=== PATIENT | female | born 1990 | race Hispanic/Latino ===

== ENCOUNTER 2017-12-21 22:49 | Emergency (ER) | payer OTHER, SELFPAY ==
[2017-12-21 22:51] VITALS: BP 157/98; PULSE 88; RESP 16; TEMP 37; O2SAT 97; BMI 41.5
[2017-12-21 23:26] LABS: Bacteria Urine Few (2-10); Culture Indicated Urine Cult Not Indicated; Mucus Urine 1+ (Negative); RBC Urine 30-100/HPF (0-5/HPF); Squamous Epithelial Cell Urine 10-30 /HPF; WBC Urine 1-5/HPF (0-5/HPF)
--- NOTE | 2017-12-22 00:19 | ED_ITS ---
HPI - Female Genitourinary General Chief complaint: Urogenital-Female Stated complaint: PAIN IN BACK AREA NAUSEA Time Seen by Provider: 12/22/17 00:00 Source: patient Mode of arrival: ambulatory Limitations: no limitations History of Present Illness HPI Narrative: The patient is a 27-year-old female who presents with right flank pain. It has been ongoing throughout the day per bili getting worse. She does have a history of kidney stones this feels similar to her prior kidney stones however the pain is much more intensified. It comes and goes she occasionally gets nauseated. She typically takes Motrin for her pain however it is not helping. She has no fever Related Data Home Medications Medication Instructions Recorded Confirmed omega 7-ljb-bsw-fish oil [Fish Oil] 1,000 mg PO QDAY #0 09/05/16 Previous Rx's Medication Instructions Recorded fluticasone 0 INTRANASAL QDAY #16 gm 08/07/16 naproxen [Naprosyn] 500 mg PO BIDCC #30 tab 09/28/16 prednisone 50 mg PO AMCC 5 Days #0 tab 10/31/16 oxycodone-acetaminophen [Percocet] 1 tab PO Q4HP PRN #15 tab 11/06/16 tamsulosin [Flomax] 0.4 mg PO Q DAY #7 cap 11/06/16 etonogestrel-ethinyl estradiol 1 icr VAGINAL QMONTH #3 icr 11/07/16 [NuvaRing] meloxicam [Mobic] 7.5 mg PO DAILY PRN #20 tab 12/22/17 ondansetron HCl [Zofran] 4 mg PO Q6-8H PRN #10 tab 12/22/17 Allergies Allergy/AdvReac Type Severity Reaction Status Date / Time levocetirizine [From Xyzal] Allergy Anaphylaxis Verified 12/21/17 22:54 Review of Systems Review of Systems GENERAL: Denies chills, fatigue, malaise, fever, sweats, travel HEENT: Denies sinus pain, ear pain, sore throat, difficulty swallowing, neck pain RESPIRATORY: Denies dyspnea, cough, wheezing, hemoptysis, sputum. CARDIOVASCULAR: Denies chest pain, palpitations, orthopnea, edema GASTROINTESTINAL: Denies nausea, vomiting, abdominal pain, diarrhea, constipation, melena. : See HPI MUSCULOSKELETAL: Denies weakness, joint pain, or bony pain SKIN: No rash, no erythema, no pruritus NEUROLOGIC: Denies weakness, dizziness, headache, numbness, change in speech, confusion PSYCHIATRIC: No concerning psychosocial issues. 12 point review of systems is negative except for those stated above and HPI [facility] Medical History Acne (Chronic 2014) Anxiety (Chronic 2012) Asthma (Chronic 1998) Chronic headaches (Chronic 2003) Hayfever (Chronic 1989) Irregular periods/menstrual cycles (Chronic 2003) Kidney stones (Chronic 2013) Migraines (Chronic 2003) Chicken pox (Resolved 1990) Surgical History Anesthesia complication (Resolved 2014) History of orthopedic surgery (Resolved 1991) Status post appendectomy (Resolved 2014) Status post tonsillectomy and adenoidectomy (Resolved 1999) Family History Brother Age: 35 Bipolar 1 disorder Schizophrenia Benign neoplasm of pancreas Grandfather Age: 79 Dementia Grandmother Cirrhosis Liver failure Alcoholism Mother Diabetes mellitus Alcoholism Liver failure Kidney failure Sepsis Pneumonia Brother No problems noted. Father No problems noted. Grandfather Kidney disease Grandmother No problems noted. Sister No problems noted. Social History Smoking Status: Never smoker Exam Initial Vital Signs Initial Vital Signs: Vital Signs Temperature 98.6 F 12/21/17 22:51 Pulse Rate 88 12/21/17 22:51 Respiratory Rate 16 12/21/17 22:51 Blood Pressure 157/98 H 12/21/17 22:51 Pulse Oximetry 97 12/21/17 22:51 GENERAL: Well-appearing, well-nourished and in no acute distress. HEENT: Head atraumatic,EOMI, pupils reactive, face symmetric CARDIOVASCULAR: Regular rate and rhythm without murmurs, rubs or gallops. RESPIRATORY: Breath sounds equal bilaterally, no wheezes rales or rhonchi. ABDOMEN: Soft, nontender. Normoactive bowel sounds all 4 quadrants. No guarding or rebound. No right upper quadrant pain : mild right CVA tenderness EXTREMITIES: Normal range of motion, no clubbing or edema. Neurovascularly intact NEUROLOGICAL: Alert and oriented x4.Normal gait and speech. SKIN: Warm, dry, no laceration, no petechiae, no rashes or lesions. Course Orders Ordered: ED Orders 12/21/17 23:10 Urine Microscopic Stat 12/22/17 00:19 Basic Metabolic Panel Stat Complete Blood Count AUTO DIFF Stat Discontinued Medications Ketorolac Tromethamine (Toradol) 30 mg IV NOW ONE Stop: 12/22/17 00:20 Last Admin: 12/22/17 00:23 Dose: 30 mg Ondansetron HCl (Zofran) 4 mg IV NOW ONE Stop: 12/22/17 00:20 Last Admin: 12/22/17 00:23 Dose: 4 mg Ondansetron HCl (Zofran Odt Prepack) 1 bottle MISC SEEINSTR ONE Stop: 12/22/17 00:51 Last Admin: 12/22/17 00:53 Dose: 1 bottle Vital Signs - 8 hr 12/21/17 22:51 12/22/17 00:56 Temperature 98.6 F 97.6 F Pulse Rate 88 73 Respiratory Rate 16 16 Blood Pressure 157/98 H 133/83 Pulse Oximetry 97 97 MDM - Female Genitourinary Lab Data Attestation: I reviewed the patient's lab results. Result diagrams: 12/21/17 23:40 12/21/17 23:40 Lab Results 12/21/17 12/21/17 12/21/17 Range/Units 23:10 23:40 23:40 WBC 10.3 (4.5-11.0) X10^3/uL RBC 4.72 (4.0-5.2) X10^6/uL Hgb 14.6 (12.0-16.0) g/dL Hct 42.5 (36-46) % MCV 89.9 (80-100) fL MCH 30.9 (26-34) PG MCHC 34.4 (30-36) % RDW 12.8 (11.6-14.8) % Plt Count 334 (150-400) X10^3/uL Neut % (Auto) 50.2 (50-75) % Lymph % (Auto) 41.4 H (25-40) % [place] % (Auto) 6.1 (3-14) % Eos % (Auto) 1.7 L (2-4) % Baso % (Auto) 0.6 (0-2) % Neut # (Auto) 5100 (2607-1774) /uL Sodium 142 (137-145) mmol/L Potassium 3.8 (3.4-5.1) mmol/L Chloride 102 (98-107) mmol/L Carbon Dioxide 28 (22-32) mmol/L BUN 12 (7-17) mg/dL Creatinine 0.80 (0.52-1.04) mg/dL Estimated GFR > 60.0 (>60) mL/min BUN/Creatinine Ratio 15.0 (6-22) Glucose 114 H (70-100) mg/dL Calcium 10.2 (8.4-10.2) mg/dL Urine RBC 30-100/hpf H (0-5/HPF) Urine WBC 1-5/hpf (0-5/HPF) Ur Squamous Epith Cells 10-30 /hpf H Urine Bacteria Few (2-10) H (None) Urine Mucus 1+ H (Negative) Ur Culture Indicated? Cult not indicated Micro UA Comment Not Reportable Point of Care Testing Test Results Negative Urine Dip Bedside Urine Glucose Negative Bedside Urine Bilirubin - Negative Bedside Urine Ketone - Negative Urine Specific [place] 1.030 Bedside Urine Occult Blood +++ Bedside Urine pH 6.0 Bedside Urine Protein +/- 15 Bedside Urine Urobilinogen - Negative Bedside Urine Nitrite - Negative Bedside Urine Leukocytes - Negative Esterase MDM Narrative Medical decision making narrative: At this time patient appears comfortable she has had multiple stones in the past. We discussed imaging however at this time recommended pain control. If she does not pass the stone then she may require imaging at that time. No renal failure noted at this time other blood work is reassuring. I discussed all findings with the patient and spouse, Education has been performed regarding treatment plan, diagnosis, warning signs and symptoms and all concerns have been addressed. Verbally agree with and understood all of the above. Discharge Plan Departure Patient Disposition: Home Clinical Impression: Kidney stones Discharge Date/Time: 12/22/17 00:57 Interventions: ED Discharge Assessment Last Done: 12/22/17 00:56 Instructions: DI for Kidney Stones Activity Restrictions/Additional Instructions: *You have been diagnosed with kidney stone *What to do: At this time blood work is reassuring no imaging needed. Hopefully passed stone in the next couple days. *Continue to take medications as directed Mobic once a day do not combine with naproxen, ibuprofen, Motrin, Aleve, Advil or other NSAIDs Zofran every 6-8 hours if needed for nausea or vomiting *Follow up with your primary care provider in 2-3 days *Return to ER if you should have fever, increasing pain, inability to tolerate fluids or any new, worsening or concerning symptoms Prescriptions: New meloxicam [Mobic] 7.5 mg tablet 7.5 mg PO DAILY PRN (Reason: pain) Qty: 20 RF: 0 ondansetron HCl [Zofran] 4 mg tablet 4 mg PO Q6-8H PRN (Reason: nausea and vomiting) Qty: 10 RF: 0 No Action fluticasone 16 GM spray,suspension Intranasal QDAY Qty: 16 RF: 0 omega 8-tvy-gxw-fish oil [Fish Oil] 1,000 MG capsule 1,000 mg PO QDAY Qty: 0 RF: 0 naproxen [Naprosyn] 500 MG tablet 500 mg PO BIDCC Qty: 30 RF: 0 prednisone 50 MG tablet 50 mg PO AMCC 5 Days Qty: 0 RF: 0 oxycodone-acetaminophen [Percocet] 5 MG/325 MG tablet 1 tab PO Q4HP PRNQty: 15 RF: 0 tamsulosin [Flomax] 0.4 MG capsule,extended release 24hr 0.4 mg PO Q DAY Qty: 7 RF: 0 etonogestrel-ethinyl estradiol [NuvaRing] 1 EACH ring 1 icr Vaginal QMONTH Qty: 3 RF: 3 Referrals: Carrie Phipps ARNP [Primary Care Provider] -
[2017-12-22] MEDS: ONDANSETRON 4 MG/2 ML INJ IV (00:23)
[2017-12-22] MEDS: KETOROLAC 60 MG/2 ML VIAL 30 MG IV (00:23)
[2017-12-22 00:25] LABS: Add Manual Diff / Slide Review NO; Basophils Percent Auto 0.6 % (0-2); Eosinophils Percent Auto 1.7 % (2-4); Hematocrit 42.5 % (36-46); Hemoglobin 14.6 g/dL (12.0-16.0); Lymphocytes Percent Auto 41.4 % (25-40); Mean Corpuscular HGB Conc 34.4 % (30-36); Mean Corpuscular Hemoglobin 30.9 PG (26-34); Mean Corpuscular Volume 89.9 fL (80-100); Monocytes Percent Auto 6.1 % (3-14); Neutrophils Absolute Auto 5100 /uL (3000-5900); Neutrophils Percent Auto 50.2 % (50-75); Platelet Count 334 X10^3/uL (150-400); Red Blood Cell Count 4.72 X10^6/uL (4.0-5.2); Red Cell Distribution Width 12.8 % (11.6-14.8); White Blood Cell Count 10.3 X10^3/uL (4.5-11.0)
[2017-12-22 00:31] LABS: Blood Urea Nitrogen 12 mg/dL (7-17); Calcium 10.2 mg/dL (8.4-10.2); Carbon Dioxide 28 mmol/L (22-32); Chloride 102 mmol/L (98-107); Estimated Glomerular Filt Rate > 60.0 mL/min (>60); Glucose 114 mg/dL (70-100); HEMOLYSIS < 15 (0-50); Potassium 3.8 mmol/L (3.4-5.1); Sodium 142 mmol/L (137-145)
[2017-12-22] MEDS: ONDANSETRON 4 MG ODT PREPACK 1 BOTTLE MISC (00:53)
[2017-12-22 00:56] VITALS: BP 133/83; PULSE 73; RESP 16; TEMP 36.4; O2SAT 97
== END 2017-12-22 00:57 | disposition home or self-care (01) ==
PROVIDERS: Emergency Provider Emergency Medicine; Family Provider Internal Medicine; PCP Internal Medicine
DX: N20.0 Calculus of kidney (principal)
CPT/HCPCS: 36591; 80048; 81003; 81015; 81025; 85025; 96374; 96375; 99283; 99284; J1885; J2405

== ENCOUNTER 2019-02-16 16:17 | Emergency (ER) | payer OTHER, SELFPAY ==
[2019-02-16 16:20] VITALS: BP 151/100; PULSE 91; RESP 18; TEMP 36.7; O2SAT 99
--- NOTE | 2019-02-16 17:55 | PC.NURSE ---
patient reports some tingling in fingers right facial tingling and headache. Symptoms started at 1300ish. Patient has had similar symptoms in the past. Patient states most of the sensation is gone but temporal and occipital headache is still present. Patient negative FAST exam. Steady on her feet. Reports stress starting IVF process on saturday. Patient has long history of headaches, reports mild headaches daily. About once a month has to take something for a headache.
--- NOTE | 2019-02-16 17:56 | DI.CT.S_ITS ---
PROCEDURE: CT HEAD/BRAIN WO CON INDICATIONS: recurrent focal numbness and visual changes TECHNIQUE: Noncontrast 4.5 mm thick angled axial sections acquired from the foramen magnum to the vertex, with coronal and sagittal reformats. For radiation dose reduction, the following was used: automated exposure control, adjustment of mA and/or kV according to patient size. COMPARISON: None. FINDINGS: Image quality: Excellent. CSF spaces: Basal cisterns are patent. No extra-axial fluid collections. Ventricles are normal in size and shape. Brain: No midline shift. No intracranial masses or hemorrhage. Lipscomb-white matter interface is normal. Skull and face: Calvarium and visualized facial bones are intact, without suspicious lesions. Sinuses: Visualized sinuses and mastoids are clear. IMPRESSION: Unremarkable head CT. No evidence of gastric, hemorrhage, or mass. Normal brain parenchyma. Dictated by: Judd Hill M.D. on 02/16/2019 at 19:06 Approved by: Judd Hill M.D. on 02/16/2019 at 19:06
--- NOTE | 2019-02-16 17:56 | ED.NEUROSD ---
HPI - Neuro Symptoms/Deficit General Chief Complaint: Neuro Symptoms/Deficit Stated Complaint: EYES LOST FOCUS FINGERS WENT NUMB DIZZY Time Seen by Provider: 02/16/19 17:22 Source: patient Mode of arrival: Ambulatory Limitations: no limitations History of Present Illness HPI Narrative: Patient comes emergency department complaining of an episode today in which she felt dizzy and then her fingers went numb, prior to development of a migraine headache. Patient states she also seemed to be unable to focus her eyes very well, though her vision itself is not blurry. Patient states she has a history of migraines and she has had some neurologic symptoms prior to the migraines previously. However, she has been under lot of stress and is scheduled to undergo IVF tomorrow, and wants make sure that everything is okay before she does this. Patient denies any vomiting but she has been somewhat nauseated with her headache. She denies fevers or chills. She has not been ill with anything recently. She has not had any head injuries. No chest pain, shortness breath, abdominal pain, neck pain, or photophobia. No other complaints at this time. She states that her headache is located in her bilateral temples and behind her eyes. On Anticoagulants: No Related Data Home Medications Medication Instructions Recorded Confirmed PNV cmb#95-ferrous fumarate-FA 1 tab PO DAILY 02/16/19 02/16/19 [] desogestrel-ethinyl estradiol 1 tab PO DAILY 02/16/19 02/16/19 [Isibloom] melatonin 3 mg PO BEDTIME PRN 02/16/19 02/16/19 Allergies Allergy/AdvReac Type Severity Reaction Status Date / Time levocetirizine [From Xyzal] Allergy Anaphylaxis Verified 08/17/18 14:56 Review of Systems Constitutional Constitutional: Denies chills, Denies fatigue, Denies fever(s), Denies frequent falls, Reports headache(s), Denies lethargy and Denies weakness Eyes Eyes: Denies change in vision, Denies eye discharge, Denies irritation and Denies loss of vision ENT Ears, Nose, Mouth, and Throat: Denies change in voice, Reports dizziness, Reports headache(s), Denies neck pain, Denies sore throat and Denies throat swelling Cardiovascular Cardiovascular: Denies chest pain, Denies irregular heart rhythm, Denies lightheadedness, Denies palpitations, Denies dyspnea, Denies dyspnea on exertion and Denies orthopnea Respiratory Respiratory: Denies cough, Denies dyspnea, Denies dyspnea on exertion and Denies wheezing Gastrointestinal Gastrointestinal: Denies abdominal pain, Denies change in bowel habits, Denies diarrhea, Reports nausea and Denies vomiting Genitourinary Genitourinary: Denies hematuria, Denies flank pain, Denies urinary incontinence and Denies urinary urgency Musculoskeletal Musculoskeletal: Denies back pain, Denies muscle weakness, Denies neck pain, Denies numbness and Denies tingling Integumentary/Breasts Skin/Breast: Denies pruritus, Denies erythema, Denies rash and Denies wounds Neurologic Neurologic: Denies behavioral changes, Denies confusion, Reports dizziness, Denies frequent falls, Reports headache(s), Denies loss of vision, Denies numbness, Reports other visual disturbances, Reports sensory deficit (Numbness fingers), Denies tingling and Denies weakness Psychiatric Psychiatric: Denies anxiety, Denies behavioral changes, Denies confusion, Denies depression, Denies homicidal ideation and Denies suicidal ideation Endocrine Endocrine: Denies fatigue, Denies flushing and Denies palpitations Hematologic/Lymphatic Hematologic/Lymphatic: Denies easy bruising Allergic/Immunologic Allergic/Immunologic: Denies urticaria, Denies throat swelling and Denies wheezing Patient History Medical History Acne (Chronic 2014) Anxiety (Chronic 2012) Asthma (Chronic 1998) Chicken pox (Resolved 1990) Chronic headaches (Chronic 2003) Hayfever (Chronic 1989) Irregular periods/menstrual cycles (Chronic 2003) Kidney stones (Chronic 2013) Migraines (Chronic 2003) Surgical History Anesthesia complication (Resolved 2014) History of orthopedic surgery (Resolved 1991) Status post appendectomy (Resolved 2014) Status post tonsillectomy and adenoidectomy (Resolved 1999) Family History Brother Age: 36 Bipolar 1 disorder Schizophrenia Benign neoplasm of pancreas Grandfather Age: 80 Dementia Grandmother Cirrhosis Liver failure Alcoholism Mother Diabetes mellitus Alcoholism Liver failure Kidney failure Sepsis Pneumonia Brother No problems noted. Father No problems noted. Grandfather Kidney disease Grandmother No problems noted. Sister No problems noted. Social History Smoking Status: Never smoker Smoking Status: Never smoker alcohol intake frequency: 0-2 drinks per day Substance Use Type: does not use Exam Initial Vital Signs Initial Vital Signs: Vital Signs Temperature 98.0 F 02/16/19 16:20 Pulse Rate 91 H 02/16/19 16:20 Respiratory Rate 18 02/16/19 16:20 Blood Pressure 151/100 H 02/16/19 16:20 Pulse Oximetry 99 02/16/19 16:20 Const General: cooperative and well developed Nutritional Appearance: well nourished Orientation: alert, awake, oriented x3 and not confused HENMT Head: normocephalic, atraumatic and other (Tender bilateral temples; no arterial prominence) Ears: external ears normal Nose: external nose normal and No nasal discharge Face and sinus: face symmetric and No dry mucous membranes Mouth: oral mucosae normal and moist mucous membranes Teeth and gingiva: dentition normal Throat: tonsils normal and uvula midline Eyes General: appearance normal, both eyes and all related structures Eyelids: eyelids normal Conjunctivae: conjunctivae normal Sclera: sclerae normal Pupils: PERRL EOM: EOM intact bilaterally Neck Neck: normal visual inspection, trachea midline, No lymphadenopathy, No midline deformity and No JVD Lymphatic: No lymphedema Chest Chest: normal inspection of the chest Resp Effort & Inspection: normal respiratory effort, able to speak in complete sentences, no respiratory distress and no use of accessory muscles Auscultation: clear to auscultation bilaterally, no rales, no rhonchi and no wheezes Cardio Rate: regular rate Rhythm: regular rhythm Heart Sounds: no click, no gallops, no murmurs and no rubs Pulses: normal peripheral pulses GI Inspection: non-distended Palpation: soft, no hepatosplenomegaly, No guarding, No pulsatile mass and No tender Auscultation: normal bowel sounds Back/Spine/Pelvis Back: No CVA tenderness Cervical Spine: cervical ROM normal and No pain with cervical ROM Thoracic/Lumbar Spine: thoracic and lumbar spine normal to inspection Skin General: no rashes or lesions noted, No jaundice and No petechiae Neuro General: alert, oriented x3, gait normal and no focal motor deficits Speech: speech normal Extrem General: full ROM, no clubbing, cyanosis or edema, no pedal edema and no calf tenderness Psych Appearance: well kempt Mental Status: mental status grossly normal Attitude: cooperative Thought Content: normal and suicidality Judgment: judgment good Course Course Course Narrative: Patient was treated symptomatically with IV fluids, Benadryl, and Compazine, after which she was found to be feeling better. Find any evidence of an emergent condition causing the patient's symptoms. Patient's neurologic symptoms had resolved by the time of presentation to the emergency department and her exam was benign. She had history of migraines, and the neurologic phenomena were consistent with an aura. We've discussed home management of symptoms, as well as the usual indications for return. I do not find any evidence of a CVA. Orders Ordered: Discontinued Medications Diphenhydramine HCl (Benadryl) 12.5 mg IV NOW ONE Stop: 02/16/19 17:46 Last Admin: 02/16/19 18:04 Dose: 12.5 mg Documented by: NATALIE Sodium Chloride (Normal Saline 0.9%) 1,000 mls @ 1,000 mls/hr IV BOLUS ONE Stop: 02/16/19 18:44 Last Infusion: 02/16/19 19:30 Dose: 0 mls/hr Documented by: Admin: 02/16/19 18:09 Dose: 1,000 mls/hr Documented by: NATALIE Prochlorperazine (Compazine) 10 mg IV NOW ONE Stop: 02/16/19 17:46 Last Admin: 02/16/19 18:04 Dose: 10 mg Documented by: NATALIE Vital Signs Vital signs: Vital Signs - 8 hr 02/16/19 16:20 Temperature 98.0 F Pulse Rate 91 H Respiratory Rate 18 Blood Pressure 151/100 H Pulse Oximetry 99 MDM - Neuro Symptoms/Deficit Medical Records Attestation: I reviewed the patient's medical records. Discharge Plan Departure Patient Disposition: Home Clinical Impression: Migraine headache with aura Qualifiers: Status migrainosus presence: without status migrainosus Intractability: not intractable Qualified Code(s): G43.109 - Migraine with aura, not intractable, without status migrainosus Discharge Date/Time: 02/16/19 19:35 Instructions: DI for Migraine Activity Restrictions/Additional Instructions: Your CT scan looks good. There is no evidence of a stroke or other emergent condition. Most likely, you have a migraine with preceding aura. You have been treated for this in the emergency department. Please follow up with your primary care physician to discuss further treatment options. Prescriptions: No Action desogestrel-ethinyl estradiol [Isibloom] 0.15-0.03 mg tablet 1 tab PO DAILY RF: 0 melatonin 3 mg Tablet 3 mg PO BEDTIME PRN (Reason: Insomnia) RF: 0 PNV cmb#95-ferrous fumarate-FA [] 28 mg iron- 800 mcg Tablet 1 tab PO DAILY RF: 0 Referrals: Carrie Phipps ARNP [Primary Care Provider] -
[2019-02-16 18:04] VITALS: BP 139/83; PULSE 76
[2019-02-16] MEDS: PROCHLORPERAZINE 10 MG/2 ML VIAL IV (18:04)
[2019-02-16] MEDS: diphenhydrAMINE 50 MG/ML VIAL 12.5 MG IV (18:04)
[2019-02-16] MEDS: SODIUM CHLORIDE 0.9% 1,000 ML 1000 ML IV (18:09)
[2019-02-16 19:35] VITALS: BP 135/74; PULSE 85; RESP 16; O2SAT 100
== END 2019-02-16 19:35 | disposition home or self-care (01) ==
PROVIDERS: Emergency Provider Emergency Medicine; Family Provider Internal Medicine; PCP Internal Medicine
DX: G43.109 Migraine with aura, not intractable, without status migrainosus (principal)
CPT/HCPCS: 36415; 70450; 96361; 96374; 96375; 99284; J0780; J1200

== ENCOUNTER → 2019-03-30 07:06 | Outpatient (CLI) | payer OTHER, SELFPAY ==
[2019-03-30 08:09] LABS: Alanine Aminotransferase 60 IU/L (<35); Albumin 4.4 g/dL (3.5-5.0); Albumin Globulin Ratio 1.4 (1.0-2.8); Alkaline Phosphatase 37 U/L (38-126); Aspartate Aminotransferase 51 IU/L (14-36); BUN Creatinine Ratio 17.1 (6-22); Bilirubin Total 0.5 mg/dL (0.2-1.3); Blood Urea Nitrogen 12 mg/dL (7-17); Calcium 9.9 mg/dL (8.4-10.2); Carbon Dioxide 24 mmol/L (22-32); Chloride 105 mmol/L (98-107); Cholesterol 224 mg/dL (140-199); Estimated Glomerular Filt Rate > 60.0 mL/min (>60); Globulin 3.1 g/dL (1.7-4.1); Glucose 98 mg/dL (70-100); HDL Cholesterol 39 mg/dL (40-60); HEMOLYSIS < 15 (0-50); LDL Cholesterol Calculated 139 mg/dL (<100); Potassium 4.5 mmol/L (3.4-5.1); Sodium 140 mmol/L (137-145); Total Protein 7.5 g/dL (6.3-8.2); Triglycerides 232 mg/dL (35-150)
== END ==
PROVIDERS: Family Provider Internal Medicine; PCP Nurse Practitioner Family; Referring Provider Nurse Practitioner Family; Visit Provider Nurse Practitioner Family
DX: Z00.00 Encounter for general adult medical examination without abnormal findings (principal); Z13.6 Encounter for screening for cardiovascular disorders
CPT/HCPCS: 36415; 80053; 80061